=== PATIENT | male | born 1980 | race Caucasian/White ===

== ENCOUNTER 2022-04-17 05:04 | Emergency (ER) | payer OTHER ==
[~2022-04-17] VITALS: Ht 170.2 cm; Wt 77.0 kg
[2022-04-17 05:09] VITALS: BP 106/88
[2022-04-17] MEDS ORDERED: ACETAMINOPHEN 325MG TABLET PO ONE (05:30)
[2022-04-17] MEDS ORDERED: TOPUD PO (06:16)
== END 2022-04-17 06:36 ==
LOC: ER 05:15
DX: S00.83XA Contusion of other part of head, initial encounter (principal); S02.2XXA Fracture of nasal bones, initial encounter for closed fracture; Y08.89XA Assault by other specified means, initial encounter; Y93.9 Activity, unspecified; Y92.9 Unspecified place or not applicable; Z02.79 Encounter for issue of other medical certificate
CPT/HCPCS: 70486; 99284

== ENCOUNTER 2022-05-08 03:41 | Emergency (ER) | payer SELFPAY ==
[~2022-05-08] VITALS: Ht 175.3 cm; Wt 87.0 kg
[~2022-05-08 03:41] MED LIST: TOPUD PO
[2022-05-08] MEDS ORDERED: CEFAZOLIN 1000MG PREMIX 50 ML IV ONE (03:45)
[2022-05-08] MEDS ORDERED: MORPHINE SULFATE 4 MG/ML CPJ (NOT FOR IM USE) IV STA (03:45)
[2022-05-08] MEDS ORDERED: ONDANSETRON HCL 4MG/2ML INJ IV STA (03:45)
[2022-05-08] MEDS ORDERED: HYDR-4001 MT (05:08)
[2022-05-08] MEDS ORDERED: BACITRACIN ZINC OINT UDPKT TOP ONE (05:30)
[2022-05-08 06:01] VITALS: BP 143/96
== END 2022-05-08 05:50 | disposition home or self-care (01) ==
LOC: ER 03:41
DX: S41.031A Puncture wound without foreign body of right shoulder, initial encounter (principal); X95.9XXA Assault by unspecified firearm discharge, initial encounter; Y93.89 Activity, other specified; Y92.9 Unspecified place or not applicable; Z88.0 Allergy status to penicillin
CPT/HCPCS: 71045; 73030; 96365; 96375; 99291; J0690; J2270; J2405; Z7610